=== PATIENT | female | born 1950 | race Caucasian/White ===

== ENCOUNTER 2016-04-16 17:48 | Emergency (ER) | payer OTHER, MEDICARE ==
[2016-04-16] MEDS ORDERED: NS 1,000 ML IV ONE (17:59)
--- NOTE | 2016-04-16 17:59 | UCPHY ---
H & P Patient Type: New HPI/ROS: HPI CHIEF COMPLAINT: Lower abdominal pain HISTORY OF PRESENT ILLNESS: This patient is a very pleasant 65-year-old female significant past medical history for diverticulitis, bowel resection, hypertension, presents to the urgent care at 6 o'clock at night with 2 weeks of progressively worsening lower abdominal pain she describes as cramping and stabbing twinging sensation she denies diarrhea, vomiting, fever or blood in her stool. She does tell me she has had more frequent loose stools. She is concerned she may have diverticulitis again. She called her doctor and was recommended to go to the emergency room urgent care. Upon arrival here in the Urgent Care she appears well nontoxic no acute distress. She has minimal abdominal pain lower quadrants. Past Medical History: Diverticulitis, hypertension, cholecystectomy Past Surgical History: bowel resection due to diverticulitis and abscess Social History: Denies drugs or alcohol, smokes tobacco, retired Family History: Noncontributory ROS REVIEW OF SYSTEMS: A comprehensive 10 point review of systems is otherwise negative aside from elements mentioned in the history of present illness. Exam Constitutional triage nursing summary reviewed, vital signs reviewed, awake/ alert. Eyes normal conjunctivae and sclera, EOMI, PERRLA. HENT normal inspection, atraumatic, moist mucus membranes, no epistaxis, neck supple/ no meningismus, no raccoon eyes. Respiratory clear to auscultation bilaterally, normal breath sounds, no respiratory distress, no wheezing. Cardiovascular rate normal, regular rhythm, no murmur, no edema, distal pulses normal. Gastrointestinal soft, very mild tenderness palpation lower abdomen no rebound , no guarding, normal bowel sounds, no distension, no pulsatile mass. Genitourinary no CVA tenderness. Musculoskeletal no midline vertebral tenderness, full range of motion, no calf swelling, no tenderness of extremities, no meningismus, good pulses, neurovascularly intact. Skin pink, warm, & dry, no rash, skin atraumatic. Neurologic awake, alert and oriented x 3, AAOx3, moves all 4 extremities equally, motor intact, sensory intact, CN II-XII intact, normal cerebellar, normal vision, normal speech. Psychiatric normal mood/affect. Heme/Lymph/Immune no lymphadenopathy. Differential diagnosis includes but is not limited to and in no particular order : Bowel obstruction, appendicitis, gallbladder disease, diverticulitis, colitis , enteritis, perforated viscus, gastritis, GERD, esophagitis, urinary tract infection, pyelonephritis, kidney stones Medical Decision Making: This patient had an IV established receive a fluid bolus, she will need a CT scan abdomen pelvis with IV contrast rule out significant acute intra-abdominal pathology will check blood work, she declined pain medicine or nausea medicine. Re-evaluation: CT scan of the abdomen pelvis with IV contrast The results of the study are no acute inflammatory process, specifically no acute diverticulitis, there is infrarenal aneurysm at 3 cm, hiatal hernia, I will notify the patient of this The study was read by Dr. Lassiter. I viewed the images myself on the PACS system. 2024: re-evaluation at this time abdomen remained soft nontender she is not vomiting she feels well. CT scan has been reviewed shows no acute inflammatory process I did notify her about her infrarenal aneurysm she is to follow up with her primary care doctor about this. She understands she should refrain from smoking. She understands return to the urgent care/emergency room if she develops any worsening symptoms includes abdominal pain, fever, vomiting. Source: Patient - Family History Significant Family History: No pertinent family hx Constitutional: Initial Vital Signs Temperature (C) 36.6 C 04/16/16 18:05 Heart Rate 73 04/16/16 18:05 Respiratory Rate 18 04/16/16 18:05 Blood Pressure 168/78 H 04/16/16 18:05 O2 Sat (%) 90 L 04/16/16 18:05 O2 Delivery Mode Room Air Allergies/Adverse Reactions: erythromycin base Allergy (Verified 04/16/16 18:04) Penicillins Allergy (Verified 04/16/16 18:04) Home Medications: Medication Instructions Recorded Amlodipine Besylate 04/16/16 Hydrochlorothiazide 04/16/16 Lisinopril 04/16/16 Medical Decision Making - Data Points Laboratory Results: Laboratory Results 04/16/16 18:58 04/16/16 18:58 04/16/16 04/16/16 18:58 18:24 WBC 7.12 10^3/uL (3.80-9.50) RBC 5.42 H 10^6/uL (4.18-5.33) Hgb 11.9 L g/dL (12.6-16.3) Hct 39.4 % (38.0-47.0) MCV 72.7 L fL (81.5-99.8) MCH 22.0 L pg (27.9-34.1) MCHC 30.2 L g/dL (32.4-36.7) RDW 21.2 H % (11.5-15.2) Plt Count 310 10^3/uL (150-400) MPV 8.6 L fL (8.7-11.7) Neut % (Auto) Not Reported Lymph % (Auto) Not Reported [place] % (Auto) Not Reported Eos % (Auto) Not Reported Baso % (Auto) Not Reported Nucleat RBC Rel Count 0.0 % (0.0-0.2) Absolute Neuts (auto) Not Reported Absolute Lymphs (auto) Not Reported Absolute Monos (auto) Not Reported Absolute Eos (auto) Not Reported Absolute Basos (auto) Not Reported Absolute Nucleated RBC 0.00 10^3/uL (0-0.01) Immature Gran % Not Reported Immature Gran # Not Reported Platelet Estimate Pending Sodium 136 mEq/L (134-144) Potassium 4.1 mEq/L (3.5-5.2) Chloride 98 mEq/L (97-110) Carbon Dioxide 27 mEq/l (22-31) Anion Gap 11 mEq/L (8-16) BUN 24 H mg/dL (7-23) Creatinine 1.0 mg/dL (0.6-1.0) Estimated GFR 55 Glucose 100 mg/dL (70-100) Calcium 8.7 mg/dL (8.5-10.4) Total Bilirubin 0.5 mg/dL (0.1-1.4) Conjugated Bilirubin 0.3 mg/dL (0.0-0.5) Unconjugated Bilirubin 0.2 mg/dL (0.0-1.1) AST 28 IU/L (14-46) ALT 27 IU/L (9-52) Alkaline Phosphatase 99 IU/L (38-126) Total Protein 7.0 g/dL (6.3-8.2) Albumin 3.7 g/dL (3.5-5.0) Lipase 225.0 IU/L (23-300) Urine Color YELLOW Urine Appearance CLEAR Urine pH 6.5 (5.0-7.5) Ur Specific [place] <= 1.005 (1.002-1.030) Urine Protein NEGATIVE (NEGATIVE) Urine Ketones NEGATIVE (NEGATIVE) Urine Blood NEGATIVE (NEGATIVE) Urine Nitrate NEGATIVE (NEGATIVE) Urine Bilirubin NEGATIVE (NEGATIVE) Urine Urobilinogen 0.2 EU (0.2-1.0) Ur Leukocyte Esterase NEGATIVE (NEGATIVE) Ur Culture Indicated? NOT INDICATED (NI) Urine Glucose NEGATIVE (NEGATIVE) Medications Given: Discontinued Medications Sodium Chloride (Ns) 1,000 mls @ 0 mls/hr IV ONCE ONE PRN Reason: Wide Open Stop: 04/16/16 18:00 Last Admin: 04/16/16 19:00 Dose: 1,000 mls Departure - Departure Disposition: Home, Routine, Self-Care Clinical Impression: Abdominal pain Qualifiers: Abdominal location: lower abdomen, unspecified Qualifier Code: (R10.30) Lower abdominal pain, unspecified Condition: Good Instructions: Acute Abdominal Pain (ED) Additional Instructions: 1. please return to the emergency room urgent care if he develops any worsening abdominal pain, fever, vomiting. 2. I do recommend that he follow up with her primary care doctor. You should go over your CT scan results with your primary care doctor. Referrals: Jennie Guy, PAC [Primary Care Provider] - As per Instructions - PQRS PQRS Measurement: 134: Depression screening and followup, PRIME MD-PHQ2 (12 years and older) Over the last 2 weeks, how often have you been bothered by any of the following problems? 1. Feeling down, depressed, or hopeless? 2. Little interest or pleasure in doing things? Patient answered no to both 1 and 2 130: Documentation of medications. Reviewed all patient medications, doses, route and frequency. 226: Do you smoke? Yes 47: 65 and older: Advanced care planning. Patient designates surrogate decision maker as spells. 51: 18 years old and older with diagnosis of COPD, spirometry performance. Patient has no history of COPD 52: 18 years old and older with COPD and symptoms of COPD or FEV1<60% predicted prescribed a B Agonist. Spirometry not performed; equipment not available.
[2016-04-16 18:07] VITALS: RESP 18; TEMP 97.9; O2SAT 90
[2016-04-16 18:29] LABS: COLOR YELLOW; LEUKOCYTE ESTERASE,URINE NEGATIVE (NEGATIVE); NITRITE,URINE NEGATIVE (NEGATIVE); PH,URINE 6.5 (5.0-7.5)
[2016-04-16] MEDS ORDERED: IOPAMIDOL (ISOVUE-300) 100 ML BTL IV ONE (18:54)
[2016-04-16 19:06] LABS: ATYPICAL LYMPHOCYTE FLAG 10 (0-99); FRAGMENT RBC FLAG 20 (0-99); HEMATOCRIT 39.4 % (38.0-47.0); HEMOGLOBIN 11.9 g/dL (12.6-16.3); LEFT SHIFT FLG 0 (0-99); LIPEMIA HEMOLYSIS FLAG 80 (0-99); MEAN CELL HEMOGLOBIN CONCENTR. 30.2 g/dL (32.4-36.7); MEAN CELL VOLUME 72.7 fL (81.5-99.8); MEAN PLATELET VOLUME 8.6 fL (8.7-11.7); PLATELET CLUMPS FLAG 10 (0-99); PLATELET COUNT 310 10^3/uL (150-400); RED BLOOD CELL COUNT 5.42 10^6/uL (4.18-5.33)
[2016-04-16 19:22] LABS: ADD DIFF? YES; RED CELL DISTRIBUTION WIDTH 21.2 % (11.5-15.2)
[2016-04-16 19:24] LABS: ADD MORPH? NO; ADD SCAN? NO
[2016-04-16 19:26] LABS: ALBUMIN 3.7 g/dL (3.5-5.0); BILIRUBIN,TOTAL 0.5 mg/dL (0.1-1.4); BILIRUBIN-CONJUGATED 0.3 mg/dL (0.0-0.5); BILIRUBIN-UNCONJUGATED 0.2 mg/dL (0.0-1.1); CALCIUM 8.7 mg/dL (8.5-10.4); POTASSIUM 4.1 mEq/L (3.5-5.2)
--- NOTE | 2016-04-16 20:21 | CT ---
CT Scan of the Abdomen and Pelvis (With Contrast) Indication: Abdominal pain. History of prior diverticulitis. Technique: 90 mL of Isovue-300 were given intravenously by machine power injection. Multidetector h elical CT imaging was performed from the diaphragm to the symphysis pubis. Dose reduction techniques were utilized. Comparison: None. Findings: Abdomen: There is a moderate-sized hiatal hernia. The lung bases are clear. Valvular calcification s are seen in the heart. No evidence for a pericardial effusion. The liver is unremarkable. The pa tient is status post cholecystectomy. The pancreas is unremarkable. The spleen is unremarkable. Aaron th adrenal glands are normal in size and appearance. Both kidneys enhance normally, without evidence for a mass or hydronephrosis. No significant abdominal lymphadenopathy. There is mild dilatation o f the infrarenal abdominal aorta up to 3 cm and evidence of atherosclerotic change. Pelvis: Anastomosis is seen in the rectosigmoid junction from prior bowel surgery. There is mild di verticulosis in the sigmoid colon and descending colon, without evidence for diverticulitis. No evid ence for a small bowel obstruction. There is degenerative disk and degenerative joint disease lumbar spine. No evidence for a bladder calculus. Impression: 1. Diverticulosis, without evidence for diverticulitis. Evidence of prior bowel surgery. No eviden ce for a small bowel obstruction. 2. Status post cholecystectomy. 3. A 3-cm infrarenal abdominal aortic aneurysm and evidence of atherosclerotic change. 4. Moderate-sized hiatal hernia. 5. Other chronic findings, as above.
[2016-04-16 20:32] VITALS: BP 163/82; PULSE 85
[2016-04-16 20:36] LABS: HYPOCHROMIA 2+; MACROCYTES 1+; MICROCYTES 2+; POLYCHROMASIA 1+
[2016-04-16 20:37] LABS: PLATELET ESTIMATE ADEQUATE (ADEQ)
== END 2016-04-16 20:32 | disposition home or self-care (01) ==
LOC: CED 17:48
DX: R10.30 Lower abdominal pain, unspecified (principal)
CPT/HCPCS: 74177; 96360; G0463; Q9967; 80048-PO; 80076-PO; 81003-PO; 83690-PO; 85025-PO

== ENCOUNTER → 2017-05-03 | Outpatient (CLI) | payer OTHER, MEDICARE | LOC: BHFA 09:30 | PROVIDERS: ATTEND Internal Medicine Cardiovascular Disease | DX: R94.31 Abnormal electrocardiogram [ECG] [EKG] (principal) | CPT/HCPCS: 78452; 93017; A9500; J2785 ==

== ENCOUNTER → 2017-05-05 | Outpatient (CLI) | payer OTHER, MEDICARE | LOC: BHLMT 10:45 | PROVIDERS: ATTEND Internal Medicine Cardiovascular Disease | DX: R01.1 Cardiac murmur, unspecified (principal); I10 Essential (primary) hypertension; I73.9 Peripheral vascular disease, unspecified | CPT/HCPCS: 76775-PO; 93306-PO ==

== ENCOUNTER → 2018-08-04 | Outpatient (CLI) | payer OTHER, MEDICARE | LOC: FIMAGING 14:22 ==